=== PATIENT | male | born 1950 | race Caucasian/White ===

== ENCOUNTER 2017-08-13 07:00 | Outpatient (CLI) | payer MEDICARE ==
[2017-08-13 08:41] LABS: Estimated GFR-MDRD - POC Greater than 90
--- NOTE | 2017-08-13 09:58 | CT ---
CT ANGIOGRAM CHEST WITH AND WITHOUT CONTRAST: Date: 08/13/17 HISTORY: 67-year-old male with history of thoracic aortic ectasia. Echocardiogram revealed enlarged aorta. Exam includes 3D rendering. FINDINGS: Very mild linear parenchymal changes in the lung bases, probably some very minimal chronic change. Ge neralized ectasia and tortuosity of the thoracic aorta. The ascending aorta measures approximately 4. 3 cm transversely. There is only very minute coronary artery calcific change. No mediastinal mass or adenopathy. No evidence of focal aortic aneurysm. IMPRESSION: Some generalized thoracic aortic ectasia and tortuosity. The lower ascending aorta measures 4.3 cm tr ansversely. Very minute linear and parenchymal changes in the lung bases, possibly some mild chronic change. No mediastinal mass, adenopathy, or other acute process. POS: [facility]
[2017-08-13] MEDS ORDERED: Iopamidol 370 76% 100 ML VIAL ONE (13:33)
== END 2017-08-13 07:01 | disposition home or self-care (01) ==
LOC: CT 07:00
PROVIDERS: ATTEND Internal Medicine Cardiovascular Disease
DX: I77.810 Thoracic aortic ectasia (principal); R07.9 Chest pain, unspecified
CPT/HCPCS: 71275; 82565